=== PATIENT | female | born 1975 | race Caucasian/White ===

== ENCOUNTER 2025-10-18 10:02 | Emergency (ER) | payer MEDICAID, OTHER ==
[2025-10-18 14:44] VITALS: BP 123/79; PULSE 68
== END 2025-10-18 12:20 | disposition home or self-care (01) ==
LOC: JD.ED 10:02
DX: S50.12XA Contusion of left forearm, initial encounter (principal); R07.89 Other chest pain; J45.909 Unspecified asthma, uncomplicated; F17.200 Nicotine dependence, unspecified, uncomplicated; Z88.5 Allergy status to narcotic agent; Z91.041 Radiographic dye allergy status; Z88.8 Allergy status to other drugs, medicaments and biological substances; Z86.16 Personal history of COVID-19; Z90.49 Acquired absence of other specified parts of digestive tract; W01.10XA Fall on same level from slipping, tripping and stumbling with subsequent striking against unspecified object, initial encounter
CPT/HCPCS: 71101; 93005; 99285; A9270